=== PATIENT | male | born 1955 | race Caucasian/White ===

== ENCOUNTER → 2016-10-02 | Outpatient (CLI) | payer BC ==
[~2016-10-02] MED LIST: KEFLEX 500MG.500 MG PO; PERCOCET 10 MG1 EACH PO
--- NOTE | 2016-10-03 12:11 | RADIOLOGY REPORT PS360 ---
MRI-L-SPINE W/O, MRI-3D RENDERING/MYELOGRAM Ordering Physician: Ken Vallejo MD Patient Age: 61 years: Male HISTORY: LUMBAGO WITH LEFT SCIATICAleft buttocks pain. Pain & numbness & tingling down left leg symptoms 1 year no trauma TECHNIQUE: Sagittal STIR, T1, T2, axial T1 and T2. On 1.5T Siemens wide bore MRI. 3-D MR myelogram image set obtained & performed on MRI workstation. Additional sagittal thin section T2 weighted dataset obtained from this latter acquisition as well (---76 CPT) FINDINGS Vertebral bodies intact. No compression fractures nor lesions. L5/S1. Diffuse disc bulge. Progression Focal disc protrusion seen at & continuing lateral to the left foramen now more evident today than on 2015 study. Yields pronounced left foraminal encroachment & stenosis and becomes most pronounced far lateral aspect. (Sagittal image 13/14]. This far leftward disc protrusion/herniation also nicely seen on axial image 24-26. Facet hypertrophy bilaterally most evident on the left also narrows the foramen.. Likely bilateral pars defect again noted most evident on the left but no listhesis. L4/5 disc fairly intact with only scant diffuse disc bulge L3/4. Generous diffuse disc bulge with now additional focal disc protrusion right paracentral. This indents the right anterior corner of thecal sac and and may impinge upon the L4 nerve root within the thecal sac, as well as yields encroachment upon the right lateral recess and entry right foramen. Moderate encroachment right foramen > leftforamen. These features on right have progressed & now more pronounced than on 2015 MR.. ( Axial image 15, and sagittal images 7-4 nicely demonstrate features at this level) Moderate facet hypertrophy bilateral also noted L2/3 disc bulge with additional disc bulge/disc protrusion right paracentral which does efface the thecal sac to the right. At this feature has also progressed since radius study 2013. Mild facet hypertrophy/arthropathy. Mild bilateral facet hypertrophy L1/L2 disc intact T12/L1 and T11/12 disc intact. Anterior disc bulge anterior marginal osteophytes are seen likely from L2/3 L3/4 at L1/2 on. 3-D MR myelogram image set demonstrates effacement upon the right aspect of the thecal sac at the L2/3 and L3/4 level due to the asymmetric disc features to the right at these levels. IMPRESSION Degenerative changes are spine with Progression of findings at multiple levels since previous November 2014 MR Regarding LEFT leg pain: L5/S1: Disc bulge with progressive focal left lateral disc protrusion, now yield more pronounced encroach upon the left foramen. This prominent Left foraminal stenosis may yield left L5 radiculopathy. Correlation required. . Bilateral pars defects and facet hypertrophy at this level again noted Right sided findings: L2/3. Moderate RIGHT paracentral disc protrusion- . This broad-based disc protrusion is new since 2014. Effaces the thecal sac to the right & displaces the right L3, L4 nerve roots within thecal sac & encroaches upon entry right foramen. L3/4. Small smaller but very focal disc protrusion/herniation RIGHT paracentral also effaces the thecal sac at this level and near encroach upon the right L4 nerve root at this level.. This feature new since 2014
== END ==
LOC: RAD 10:00
DX: M54.42 Lumbago with sciatica, left side (principal)

== ENCOUNTER → 2017-02-16 | Outpatient (CLI) | payer BC ==
--- NOTE | 2017-02-16 17:39 | RADIOLOGY REPORT PS360 ---
PROCEDURE: 2-D M-mode and color Doppler study INDICATIONS FOR THE TEST: Chest pain COPD Heart Murmur+ Tobacco Smoking+ Palpitations Fatigue+ Syncope Edema+ Hypertension+Diabetes Mellitus Rheumatic Fever SOB COREY+Obesity+Hyperlipidemia Family History HD Additional History AFIB PATIENT INFORMATION HEIGHT: 71 WEIGHT: 305 GENDER: Male B/P: 152/99 2-D/M-MODE INTERPRETATION: 2-D MEASUREMENTS OBSERVED VALUES IN CMS Right Ventricular Dimension (RVDd) 2.1 Interventricular Septum (Thickness)(IVsd) 1.0 Left Ventricular Internal Dimensions(LVIDd) 4.9 Left Ventricular Posterior Wall (Thickness)(LVPWd) 1.0 Aortic Root 2.8 Aortic Cusp Separation 2.2 Left Atrial Dimensions (LAD) 4.6 2D 1. Left atrium is moderately enlarged, left ventricle is normal size, there is mild concentric left ventricular hypertrophy, visually estimated ejection fraction 45% with no obvious regional wall motion abnormality, endocardial surfaces are poorly visualized. 2. The right atrium and right ventricle are mildly enlarged with normal contractility. 3. The aortic valve is minimally thickened and fibrosed. 4. The mitral and tricuspid valvular minimally thickened. 5. The pulmonic valve is poorly visualized. 6. No significant pericardial effusion noted. DOPPLER INTERROGATION: Doppler interrogation of the aortic mitral and tricuspid valvular presence of mild mitral and tricuspid regurgitation, tricuspid regurgitant jet velocity insufficient for calculation of the right ventricular systolic pressure. CONCLUSION: 1. Biatrial enlargement, normal left ventricular size, mild concentric left ventricular hypertrophy, visually estimated ejection fraction 45% with no obvious regional wall motion abnormality. 2. Mildly enlarged right ventricle with normal contractility. 3. Mild mitral and tricuspid regurgitation. 4. No significant pericardial effusion noted.
== END ==
LOC: RT 02-09 15:15
DX: I48.91 Unspecified atrial fibrillation (principal)

== ENCOUNTER → 2017-03-07 | Outpatient (CLI) | payer BC ==
--- NOTE | 2017-03-08 15:43 | RADIOLOGY REPORT PS360 ---
History and Indications: Hypertension, tobacco use, atrial fibrillation, abnormal EKG, chest pain. Procedure: Patient received a 0.4 mg of Lexiscan, resting heart rate was 86 beats prominent, resting blood pressure 144/81, Lexiscan maximum heart rate achieved was 99 bpm is less than 85% of the maximum predicted heart rate and a blood pressure was 114/63. With Lexiscan patient complained of shortness of breath. Electrocardiogram: Resting electrocardiogram showed atrial fibrillation controlled ventricular response, rightward axis, with Lexiscan there is less than 1.5 mm the segment depression noted from the baseline EKG. The EKG portion of the Lexiscan Myoview is nondiagnostic. Cardiac stress and resting SPECT images: Cardiac stress and the rest SPECT images were obtained technetium 99 Myoview 10.6 mCi at rest and 31.5 mCi at stress, gated SPECT further analysis of segmental wall motion and calculation of the ejection fraction also done. Cardiac stress and rest images show uniform myocardial activity without any segmental perfusion abnormality, computer derived ejection fraction is 41% with no obvious regional wall motion abnormality, right ventricle is mildly enlarged with normal contractility, however during this study patient was in atrial fibrillation underestimate the ejection fraction by gated SPECT, and echocardiogram will be better modality to evaluate left ventricular systolic function in this patient. Conclusion: 1. The EKG portion of the Lexiscan Myoview is nondiagnostic 2. No obvious scintigraphic evidence of reversible ischemia seen. Computer derived ejection fraction is 41% as described above. No obvious regional wall motion abnormality seen. During this study patient was in atrial fibrillation, which may underestimate the ejection fraction by gated SPECT.
== END ==
LOC: RAD 06:34
DX: R07.89 Other chest pain (principal); R06.09 Other forms of dyspnea; I48.91 Unspecified atrial fibrillation; I10 Essential (primary) hypertension; G47.33 Obstructive sleep apnea (adult) (pediatric); R94.31 Abnormal electrocardiogram [ECG] [EKG]; Z72.0 Tobacco use
CPT/HCPCS: A9502; J2785

== ENCOUNTER → 2017-03-26 | Outpatient (CLI) | payer BC ==
[2017-03-26 11:05] LABS: BUN 17 mg/dL (7-18)
[2017-03-26 11:48] LABS: GFR (ESTIMATED) 76 ML/MIN (>60)
== END ==
LOC: LAB 08:25
PROVIDERS: Internal Medicine Cardiovascular Disease
DX: R06.09 Other forms of dyspnea (principal); I48.91 Unspecified atrial fibrillation; I10 Essential (primary) hypertension; R93.1 Abnormal findings on diagnostic imaging of heart and coronary circulation; I20.8 Other forms of angina pectoris; E66.09 Other obesity due to excess calories; G47.33 Obstructive sleep apnea (adult) (pediatric); F17.200 Nicotine dependence, unspecified, uncomplicated

== ENCOUNTER → 2017-05-04 | Day surgery (SDC) | payer BC ==
[~2017-05-04] VITALS: Ht 180.3 cm; Wt 102.1 kg
--- NOTE | 2017-05-04 14:41 | Procedure Note ---
Electrocardioversion Date of procedure: 05/04/17 Time of procedure: 1430 Surgeon: Walter Calvin' Diagnosis: A. FIB Procedure Summary: PATIENT WAS BROUGHT TO THE CARDIAC ICE SKATING COACH AN OUTPATIENT. AFTER INFORMED CONSENT OBTAINED, GENERAL ANESTHESIA WAS PROVIDED AND THE PATIENT RECEIVED A SINGLE 200J SYNCHRONIZED DC ELECTRICAL SHOCK WHICH SUCCESSFULLY CONVERTED HIM TO A SINUS RHYTHM. HE TOLERATED THE PROCEDURE WITHOUT COMPLICATIONS. Complications: None Conclusion: SUCCESSFUL DC CARDIOVERSION TO SINUS RHTYHM. at 1443
--- NOTE | 2017-05-04 14:41 | Procedure Note ---
Electrocardioversion Date of procedure: 05/04/17 Time of procedure: 1430 Surgeon: Walter Calvin' Diagnosis: A. FIB Procedure Summary: PATIENT WAS BROUGHT TO THE CARDIAC BRICK PICKER AN OUTPATIENT. AFTER INFORMED CONSENT OBTAINED, GENERAL ANESTHESIA WAS PROVIDED AND THE PATIENT RECEIVED A SINGLE 200J SYNCHRONIZED DC ELECTRICAL SHOCK WHICH SUCCESSFULLY CONVERTED HIM TO A SINUS RHYTHM. HE TOLERATED THE PROCEDURE WITHOUT COMPLICATIONS. Complications: None Conclusion: SUCCESSFUL DC CARDIOVERSION TO SINUS RHTYHM. at 1449
== END ==
LOC: CATHLAB 14:01
PROVIDERS: Internal Medicine Cardiovascular Disease
PROC: 5A2204Z Restoration of Cardiac Rhythm, Single (ICD-10-PCS; principal; 2017-05-04 14:30)
DX: I48.91 Unspecified atrial fibrillation (principal)